=== PATIENT | male | born 1945 | race Caucasian/White ===

== ENCOUNTER 2017-03-31 06:00 | Emergency (ER) | payer OTHER ==
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
--- NOTE | 2017-03-31 07:41 | ED ORDER SUMMARY ---
..... Patient: MATA ALVARADO OrderSheet [facility] VisitID: [id number] [place] [address] 71y, M Registration Date/Time: 03/31/2017 ORDER SHEET Weight: 90.7 kg (stated) Allergies: [place] GENERAL ORDERS: CT Head wo Cont Urgent (06:03/31/2017 Michael Stahl) (Ack 6:32 [facility] Rod Drawer) (6:53 Sayra) MEDICATION ORDERS: Phenergan IV 25 mg (HIGH ALERT MEDICATION, NOW) (06:03/31/2017 Michael Stahl) (Ack 6:30 JQuivey R.N.) (6:40 JQuivey R.N.) IV FLUIDS: Benadryl IV 25 mg (NOW) (06:03/31/2017 Michael Stahl) (Ack 6:30 JQuivey R.N.) (6:41 JQuivey R.N.) Decadron IV 10 mg (NOW) (06:03/31/2017 Michael Stahl) (Ack 6:30 JQuivey R.N.) (6:41 JQuivey R.N.) Toradol IV 30 mg (NOW) (06:03/31/2017 Michael Stahl) (Ack 6:30 JQuivey R.N.) (6:40 JQuivey R.N.) ORDER SHEET NOTES: [Electronically signed by Abhishek Franklin R.N. (08:13 03/31/2017)] [Electronically signed by Terry Mcwilliams Dr. (11:20 04/04/2017)] [Electronically locked/signed by Abhishek Franklin R.N. (08:13 03/31/2017)]
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
--- NOTE | 2017-03-31 07:41 | ED ORDER SUMMARY ---
..... Patient: MATA ALVARADO OrderSheet [facility] VisitID: [id number] [place] [address] 71y, M Registration Date/Time: 03/31/2017 ORDER SHEET Weight: 90.7 kg (stated) Allergies: [place] GENERAL ORDERS: CT Head wo Cont Urgent (06:03/31/2017 Michael Stahl) (Ack 6:32 [facility] Luggage Attendant) (6:53 Sayra) MEDICATION ORDERS: Phenergan IV 25 mg (HIGH ALERT MEDICATION, NOW) (06:03/31/2017 Michael Stahl) (Ack 6:30 JQuivey R.N.) (6:40 JQuivey R.N.) IV FLUIDS: Benadryl IV 25 mg (NOW) (06:03/31/2017 Michael Stahl) (Ack 6:30 JQuivey R.N.) (6:41 JQuivey R.N.) Decadron IV 10 mg (NOW) (06:03/31/2017 Michael Stahl) (Ack 6:30 JQuivey R.N.) (6:41 JQuivey R.N.) Toradol IV 30 mg (NOW) (06:03/31/2017 Michael Stahl) (Ack 6:30 JQuivey R.N.) (6:40 JQuivey R.N.) ORDER SHEET NOTES: [Electronically signed by Abhishek Franklin R.N. (08:13 03/31/2017)] [Electronically signed by Terry Mcwilliams Dr. (11:20 04/04/2017)] [Electronically locked/signed by Abhishek Franklin R.N. (08:13 03/31/2017)]
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
--- NOTE | 2017-04-04 11:20 | ED MAR SUMMARY ---
..... Medication Administration Record [facility] [address] [place] [address] Patient: MATA ALVARADO Visit ID: [id number] 71y, M Weight: 90.7 kg Height/Length: 68 in BMI: 30.4 ALLERGIES: [place] Given 06:30 03/31/2017 Anthony Rush RCristelN. Medication Administered: PHENERGAN [IVP] (PROMETHAZINE HCL), Dose: 25 mg IVP over 2 minute(s), Site: #1 right wrist. Medication Ordered: Phenergan IV 25 mg (HIGH ALERT MEDICATION, NOW). Given 06:32 03/31/2017 Anthony Rush RCristelN. Medication Administered: TORADOL [IVP], Dose: 30 mg IVP over 2 minute(s), Site: #1 right wrist. Medication Ordered: Toradol IV 30 mg (NOW). Given 06:34 03/31/2017 Anthony Rush, R.N. Medication Administered: DECADRON [IVP], Dose: 10 mg IVP over 2 minute(s), Site: #1 right wrist. Medication Ordered: Decadron IV 10 mg (NOW). Given 06:37 03/31/2017 Anthony Rush R.N. Medication Administered: BENADRYL [IVP] (DIPHENHYDRAMINE HCL), Dose: 25 mg IVP over 2 minute(s), Site: #1 right wrist. Medication Ordered: Benadryl IV 25 mg (NOW).
--- NOTE | 2017-04-04 11:20 | ED MED RECONCILIATION SUMMARY ---
Patient: MATA ALVARADO Medication Reconciliation Report [facility] VisitID: [id number] Stefan [place] [address] 71y, M Registration Date/Time: 03/31/2017 Weight: 90.7 kg Height/Length: 68 in. BMI: 30.4 ALLERGIES: [place] The patient's Home Medications are listed below: CONTINUE TAKING THE FOLLOWING MEDICATIONS: HYDROcodone Bitartrate ER Oral Lisinopril Oral Plavix Oral The source(s) of the original Home Medication information: Not obtained. The following Medications were given to the patient in the Emergency Department: PHENERGAN [IVP] IVP 25 mg, administered: 03/31/2017 6:30:00 AM Toradol [IVP] IVP 30 mg, administered: 03/31/2017 6:32:00 AM Decadron [IVP] IVP 10 mg, administered: 03/31/2017 6:34:00 AM Benadryl [IVP] IVP 25 mg, administered: 03/31/2017 6:37:00 AM The following Medications were prescribed to the patient: Zofran (orally disintegrating tablets) 4 mg: take 1 orally every 8 hours as needed for nausea and vomiting. Dispense ten (10). No refill. Substitution is permissible. -- Terry Mcwilliams Dr. Tylenol (available over the counter): take according to label instructions. -- Terry Mcwilliams Dr.
--- NOTE | 2017-04-04 11:20 | ED MAR SUMMARY ---
..... Medication Administration Record [facility] [address] [place] [place] [address] Patient: MATA ALVARADO Visit ID: [id number] 71y, M Weight: 90.7 kg Height/Length: 68 in BMI: 30.4 ALLERGIES: [place] Given 06:30 03/31/2017 Anthony Rush RCristelN. Medication Administered: PHENERGAN [IVP] (PROMETHAZINE HCL), Dose: 25 mg IVP over 2 minute(s), Site: #1 right wrist. Medication Ordered: Phenergan IV 25 mg (HIGH ALERT MEDICATION, NOW). Given 06:32 03/31/2017 Anthony Rush RCristelN. Medication Administered: TORADOL [IVP], Dose: 30 mg IVP over 2 minute(s), Site: #1 right wrist. Medication Ordered: Toradol IV 30 mg (NOW). Given 06:34 03/31/2017 Anthony Rush, R.N. Medication Administered: DECADRON [IVP], Dose: 10 mg IVP over 2 minute(s), Site: #1 right wrist. Medication Ordered: Decadron IV 10 mg (NOW). Given 06:37 03/31/2017 Anthony Rush R.N. Medication Administered: BENADRYL [IVP] (DIPHENHYDRAMINE HCL), Dose: 25 mg IVP over 2 minute(s), Site: #1 right wrist. Medication Ordered: Benadryl IV 25 mg (NOW).
--- NOTE | 2017-04-04 11:20 | ED MED RECONCILIATION SUMMARY ---
Patient: MATA ALVARADO Medication Reconciliation Report [facility] VisitID: [id number] [place] [address] 71y, M Registration Date/Time: 03/31/2017 Weight: 90.7 kg Height/Length: 68 in. BMI: 30.4 ALLERGIES: [place] The patient's Home Medications are listed below: CONTINUE TAKING THE FOLLOWING MEDICATIONS: HYDROcodone Bitartrate ER Oral Lisinopril Oral Plavix Oral The source(s) of the original Home Medication information: Not obtained. The following Medications were given to the patient in the Emergency Department: PHENERGAN [IVP] IVP 25 mg, administered: 03/31/2017 6:30:00 AM Toradol [IVP] IVP 30 mg, administered: 03/31/2017 6:32:00 AM Decadron [IVP] IVP 10 mg, administered: 03/31/2017 6:34:00 AM Benadryl [IVP] IVP 25 mg, administered: 03/31/2017 6:37:00 AM The following Medications were prescribed to the patient: Zofran (orally disintegrating tablets) 4 mg: take 1 orally every 8 hours as needed for nausea and vomiting. Dispense ten (10). No refill. Substitution is permissible. -- Terry Mcwilliams Dr. Tylenol (available over the counter): take according to label instructions. -- Terry Mcwilliams Dr.
--- NOTE | 2017-04-04 11:20 | ED DISCHARGE INSTRUCTIONS ---
Patient: MATA ALVARADO General Instructions [facility] VisitID: [id number] [place] [address] 71y, M Registration Date/Time: 03/31/2017 03/31/2017 07:07 BP: 131/76. HR: 65. RR: 16. O2 saturation: 99%. Pain level now: 0/10. Acute headache. Blood pressure normal. Oxygen saturation normal. Minor closed head injury. Unknown whether a loss of consciousness occurred. INSTRUCTIONS Warnings: GENERAL WARNINGS: Return or contact your physician immediately if your condition worsens or changes unexpectedly, if not improving as expected, or if other problems arise. SPECIFICALLY, return if you develop fever, vomiting, numbness, weakness, difficulty thinking, visual disturbances, fainting or extreme fatigue. Your Current Medications: CONTINUE TAKING THE FOLLOWING MEDICATIONS: HYDROcodone Bitartrate ER Oral. Lisinopril Oral. Plavix Oral. Unable to Obtain* : patient states taht he cannot remember. Prescription Medications: Zofran (orally disintegrating tablets) 4 mg: take 1 orally every 8 hours as needed for nausea and vomiting. Dispense ten (10). No refill. Substitution is permissible. OTC Medications: Tylenol (available over the counter): take according to label instructions. Follow-up: Return to the emergency department as needed. Follow up with your doctor in three days. Reason for referral: recheck today's concerns. Summary of care provided to patient via paper. Screening today revealed the patient's blood pressure to be in the normal range. The patient should follow up with a primary care provider for blood pressure management. Understanding of the discharge instructions verbalized by patient. ADDITIONAL INFORMATION Head Injury, No Wake-Up (Adult) You have had a head injury. It does not appear serious at this time. Symptoms of a more serious problem (concussion, bruising, or bleeding in the brain) may appear later. Therefore, watch for the WARNING SIGNS listed below. Home Care: Your healthcare provider will tell you whether its okay to drive. If so, you can drive yourself home. For the next day or so, be careful when driving or using heavy machinery until you are sure you have no delayed symptoms. During the next 24 hours someone must stay with you to check for the signs below. It is not necessary to stay awake or be awakened during the night. If you have swelling of the face or scalp, apply an ice pack (ice cubes in a plastic bag, wrapped in a towel) for 20 minutes. Do this every 1-2 hours until the swelling starts to go down. Do not use aspirin or ibuprofen (Motrin, Advil) after a head injury.You may use acetaminophen (Tylenol)to control pain, unless another pain medicine was prescribed. [NOTE: If you have chronic liver or kidney disease or ever had a stomach ulcer or GI bleeding, talk with your doctor before using these medicines.] For the next 24 hours: Do not take alcohol, sedatives or medicines that make you sleepy. Avoid strenuous activities. No lifting or straining. If you have had any symptoms of a concussion today (nausea, vomiting, dizziness, confusion, headache, memory loss or if you were knocked out), do not return to sports or any activity that could result in another head injury until all symptoms are gone and you have been cleared by your doctor. A second head injury before fully recovering from the first one can lead to serious brain injury. Follow Up with your doctor if symptoms are not improving after 24 hours, or as directed. [NOTE: A radiologist will review any X-rays or CT scans that were taken. We will notify you of any new findings that may affect your care.] Get Prompt Medical Attention if any of the followingWARNING SIGNS occur: Repeated vomiting Severe or worsening headache or dizziness Unusual drowsiness, or unable to awaken as usual Confusion or change in behavior or speech, memory loss, blurred vision Convulsion (seizure) Increasing scalp or face swelling Redness, warmth or pus from the swollen area Fluid drainage or bleeding from the nose or ears Headache [Unspecified] The cause of your headache today is not clear, but it does not appear to be the sign of any serious illness. Under stress, some people tense the muscles of their shoulder, neck and scalp without knowing it. If this condition lasts long enough, a TENSION HEADACHE can occur. A MIGRAINE HEADACHE is caused by changes in blood flow to the brain. A migraine attack may be triggered by emotional stress, hormone changes during the menstrual cycle, oral contraceptives, alcohol use, certain foods containing tyramine, eye strain, weather changes, missing meals, lack of sleep or oversleeping. Other causes of headache include a viral illness with high fever, head injury with concussion, sinus, ear or throat infection, dental pain and TMJ (jaw joint) pain. More serious but less common causes of headache include stroke, brain hemorrhage, brain tumor, meningitis and encephalitis. Home Care: If you were given pain medicine for this headache, do not drive yourself home. Arrange for a ride, instead. When you get home, try to sleep. You should feel much better when you wake up. Apply heat to the back of your neck to relieve neck muscle spasm. Migraine headaches may respond best to an ice pack on the forehead or at the base of the skull. If you are having nausea or vomiting, follow a light diet until your headache is relieved. If you have a migraine type headache, use sunglasses when in the daylight or around bright indoor lighting until symptoms improve. Bright glaring light can worsen this kind of headache. Follow Up with your doctor if the headache is not better within the next 24 hours. If you have frequent headaches you should discuss a treatment plan with your primary care doctor. By being aware of the earliest signs of headache, and starting treatment right away, you may be able to stop the pain yourself. Get Prompt Medical Attention if any of the following occur: Worsening of your head pain or no improvement within 24 hours Repeated vomiting (unable to keep liquids down) Fever of 100.4F (38C) or higher, or as directed by your healthcare provider Stiff neck Extreme drowsiness, confusion or fainting Dizziness, vertigo (dizziness with spinning sensation) Weakness of an arm or leg or one side of the face Difficulty with speech or vision Ondansetron Oral disintegrating tablet What is this medicine? ONDANSETRON (on IHRAM se margie) is used to treat nausea and vomiting caused by chemotherapy. It is also used to prevent or treat nausea and vomiting after surgery. How should I use this medicine? These tablets are made to dissolve in the mouth. Do not try to push the tablet through the foil backing. With dry hands, peel away the foil backing and gently remove the tablet. Place the tablet in the mouth and allow it to dissolve, then swallow. While you may take these tablets with water, it is not necessary to do so. Talk to your manager engagement regarding the use of this medicine in children. Special care may be needed. What side effects may I notice from receiving this medicine? Side effects that you should report to your doctor or health customer care manager as soon as possible: allergic reactions like skin rash, itching or hives, swelling of the face, lips, or tongue breathing problems dizziness fast or irregular heartbeat feeling faint or lightheaded, falls fever and chills swelling of the hands and feet tightness in the chest Side effects that usually do not require medical attention (report to your doctor or health customer care manager if they continue or are bothersome): constipation or diarrhea headache What may interact with this medicine? Do not take this medicine with any of the following medications: -apomorphine -cisapride -dofetilide -dronedarone -pimozide -thioridazine -ziprasidone This medicine may also interact with the following medications: -carbamazepine -phenytoin -rifampicin -tramadol -other medicines that prolong the QT interval (cause an abnormal heart rhythm) What if I miss a dose? If you miss a dose, take it as soon as you can. If it is almost time for your next dose, take only that dose. Do not take double or extra doses. Where should I keep my medicine? Keep out of the reach of children. Store between 2 and 30 degrees C (36 and 86 degrees F). Throw away any unused medicine after the expiration date. What should I tell my health care provider before I take this medicine? They need to know if you have any of these conditions: heart disease history of irregular heartbeat liver disease low levels of magnesium or potassium in the blood an unusual or allergic reaction to ondansetron, granisetron, other medicines, foods, dyes, or preservatives or trying to get breast-feeding What should I watch for while using this medicine? Check with your doctor or health customer care manager as soon as you can if you have any sign of an allergic reaction. You have been given the following additional information: HEAD INJURY, No Wake-Up (Adult) Headache, Unspecified Ondansetron Oral disintegrating tablet (Electronically signed by Terry Mcwilliams Dr. 04/04/2017 11:20)
== END 2017-03-31 08:11 | disposition home or self-care (01) ==
LOC: ED SRH 06:00
DX: S09.90XA Unspecified injury of head, initial encounter (principal); Y08.89XA Assault by other specified means, initial encounter; Y93.89 Activity, other specified; Y99.8 Other external cause status; J44.9 Chronic obstructive pulmonary disease, unspecified; I10 Essential (primary) hypertension; Z79.891 Long term (current) use of opiate analgesic; Z79.899 Other long term (current) drug therapy; Z79.02 Long term (current) use of antithrombotics/antiplatelets

== ENCOUNTER 2017-04-04 20:18 | Emergency (ER) | payer OTHER ==
--- NOTE | 2017-04-04 20:43 | ED NURSING NOTES ---
Clinical Report - Nurses [facility] [address] [place] [address] 04/04/2017 20:19 Patient: MATA ALVARADO TRIAGE Triage time 20:Apr 04 2017. Acuity: LEVEL 4. Chief Complaint: Location of symptoms- left arm (lump proximal left upper arm). Alert. No acute distress. SEPSIS SCREEN: Sepsis Screen. Negative (no infection suspected/documented). --20:30 Jil Giles R.N. 20:23 04/04/17. BP: 146/77. HR: 81. RR: 16. O2 saturation: 94%. Temp: 98.1 F. Pain level now: 01/10. --20:30 Jil Giles R.N. Weight: 90.7 kg stated. Height/Length: 68 inches Per Patient. BMI: 30.4. --20:28 Jil Giles R.N. Medications HYDROcodone Bitartrate ER Oral. Lisinopril Oral. Plavix Oral. --20:25 Jil Giles R.N. Metoprolol Tartrate Oral. --20:27 Jil Giles R.N. Allergies [place]. --20:25 Jil Giles R.N. History Arrived by private vehicle. Historian: patient. No injury occurred. Treatment UNDERWRITING SUPPORT MANAGER: None. PAST MEDICAL HX: Tetanus status: up-to-date. Immunizations: up-to-date. SOCIAL HX: Light tobacco smoker (cigarette)- less than 1/2 a pack per day. No alcohol use or drug use. No infectious disease exposure. SELF HARM ASSESSMENT: A self harm assessment was performed. The patient answered "no" to the question "Do you have thoughts of harming or killing yourself?". FALL RISK ASSESSMENT: Fall risk assessment completed. No fall risk identified. NUTRITIONAL RISK ASSESSMENT: The nutritional risk assessment revealed no deficiencies. FUNCTIONAL ASSESSMENT: Functional assessment: no impairments noted. LEARNING NEEDS ASSESSMENT: The learning needs assessment revealed no barriers. ABUSE ASSESSMENT: Abuse assessment: The patient was asked "Do you feel safe in your home?". SKIN INTEGRITY ASSESSMENT: Skin integrity risk assessment completed. No skin integrity risk identified. --20:30 Jil Giles R.N. PROBLEMS: Headache. Head Injury. Congenital Heart Disease. Cirrhosis. Hepatitis. COPD - Chronic Obstructive Pulmonary Disease. Hypertension. Cardiac Stent. Heart attack. Back Injury. Neck Pain. Migraine Headache. Back Pain. --20:27 Jil Giles R.N. ADDITIONAL SURGERIES: Back Surgery. Cardiac Stent. Cholecystectomy. Wrist repair. --20:27 Jil Giles R.N. Interventions ID band on patient. --20:30 Jil Giles R.N. PHYSICAL ASSESSMENT Ambulatory to room. GENERAL / NEURO / PSYCH: Oriented X 4. Alert. Appears in no acute distress. EXTREMITIES: Neuro-vascular status intact to the extremity. No upper extremity edema. Left arm: of the medial aspect of upper arm (lump). SKIN: Skin is warm and dry. --20:31 Jil Giles R.N. NURSING PROGRESS NOTES Patient gowned. Patient identifiers checked. Call light placed in reach. Side rails up. Bed placed in lowest position. Brakes of bed on. --20:31 Jil Giles R.N. EKG time: (20:35). EKG was performed by a tech and shown to the ED physician and PA. --20:43 [facility]. DISPOSITION / DISCHARGE 20:50. Condition at departure: unchanged. No learning barriers present. Discharge instructions provided and reviewed with the patient. Patient verbalized understanding. Written instructions provided in [place]. The patient was discharged home. He left the Emergency Department ambulatory and via private vehicle. Patient driving. Medication list reviewed and validated. --21:04 Bree Hernandez R.N. 20:23 04/04/17. BP: 146/77. HR: 81. RR: 16. O2 saturation: 94%. Temp: 98.1 F. Pain level now: 01/10. --21:04 Bree Hernandez R.N. Locked/Released at 04/04/2017 21:05 by Bree Hernandez R.N.
--- NOTE | 2017-04-04 20:43 | ED CLINICAL REPORT ---
Clinical Report - Physicians/Mid Levels [facility] [address] [place] [address] 04/04/2017 20:19 Patient: MATA ALVARADO Time Seen: 21:43 Sunday 02 2016. Arrived- By private vehicle. Historian- patient. HISTORY OF PRESENT ILLNESS Chief Complaint: SKIN RASH and LESION. This started today and is still present. (patient felt a lump to the upper arm today, and his left side, and it was painful, and due to concerns previous from a cardiac stent, he remembers his doctor stating to him that he is at risk of blood clots. Patient with no history of DVT or PE. He has no pain outside of when he contacts the left upper arm where he has found some small amount of swelling. Denies any injury. Denies any shortness of breath or chest pain. Denies any trauma to the left arm. Denies any fevers. Denies a rash to the area.). REVIEW OF SYSTEMS No fever, chills, cough, headache or nausea. No difficulty with urination. All systems otherwise negative, except as recorded above. PAST HISTORY Tetanus immunization status is up-to-date. Problems: Headache. Head Injury. Congenital Heart Disease. Cirrhosis. Hepatitis. COPD - Chronic Obstructive Pulmonary Disease. Hypertension. Cardiac Stent. Heart attack. Back Injury. Neck Pain. Migraine Headache. Back Pain. Additional Surgeries: Back Surgery. Cardiac Stent. Cholecystectomy. Wrist repair. Medications: Metoprolol Tartrate Oral. HYDROcodone Bitartrate ER Oral. Lisinopril Oral. Plavix Oral. Allergies: [place]. ADDITIONAL NOTES The nursing notes have been reviewed. PHYSICAL EXAM Vital Signs: 04/04/2017 20:23 BP: 146/77. HR: 81. RR: 16. O2 saturation: 94%. Temp: 98.1 F. Pain level now: 3/10. Appearance: Alert. Neck: Neck supple. No lymphadenopathy. Respiratory: No respiratory distress. Breath sounds normal. Skin: Skin warm. Tender indurated area (Small 0.3 x 0.3 lump mobile minimally tender on the left distal bicep, with no discoloration.). No warmth. There is induration. Neuro: Oriented X 3. PROGRESS AND PROCEDURES Course of Care: Patient has no pain outside of palpation of this left small lesion. Patient concerned about DVT, given him reassurance for such, may be an insect bites of the area, no surrounding erythema. Full range of motion. No lymphangitic streaking. Suspicion is low as for DVT. Symptoms started today. Patient to follow up outpatient, return precautions discussed with him. Patient is stable. Symptoms better. Patient/family counseled. Disposition: Discharged. CLINICAL IMPRESSION Left upper extremity small lump (palpable). INSTRUCTIONS Follow-up: Follow up with your doctor in three. (Electronically signed by Lidia Deal P.A.-C 04/04/2017 21:48)
--- NOTE | 2017-04-04 20:43 | ED CLINICAL REPORT ---
Clinical Report - Physicians/Mid Levels [facility] [address] [place] [address] 04/04/2017 20:19 Patient: MATA ALVARADO Time Seen: 21:43 Sunday 02 2016. Arrived- By private vehicle. Historian- patient. HISTORY OF PRESENT ILLNESS Chief Complaint: SKIN RASH and LESION. This started today and is still present. (patient felt a lump to the upper arm today, and his left side, and it was painful, and due to concerns previous from a cardiac stent, he remembers his doctor stating to him that he is at risk of blood clots. Patient with no history of DVT or PE. He has no pain outside of when he contacts the left upper arm where he has found some small amount of swelling. Denies any injury. Denies any shortness of breath or chest pain. Denies any trauma to the left arm. Denies any fevers. Denies a rash to the area.). REVIEW OF SYSTEMS No fever, chills, cough, headache or nausea. No difficulty with urination. All systems otherwise negative, except as recorded above. PAST HISTORY Tetanus immunization status is up-to-date. Problems: Headache. Head Injury. Congenital Heart Disease. Cirrhosis. Hepatitis. COPD - Chronic Obstructive Pulmonary Disease. Hypertension. Cardiac Stent. Heart attack. Back Injury. Neck Pain. Migraine Headache. Back Pain. Additional Surgeries: Back Surgery. Cardiac Stent. Cholecystectomy. Wrist repair. Medications: Metoprolol Tartrate Oral. HYDROcodone Bitartrate ER Oral. Lisinopril Oral. Plavix Oral. Allergies: [place]. ADDITIONAL NOTES The nursing notes have been reviewed. PHYSICAL EXAM Vital Signs: 04/04/2017 20:23 BP: 146/77. HR: 81. RR: 16. O2 saturation: 94%. Temp: 98.1 F. Pain level now: 3/10. Appearance: Alert. Neck: Neck supple. No lymphadenopathy. Respiratory: No respiratory distress. Breath sounds normal. Skin: Skin warm. Tender indurated area (Small 0.3 x 0.3 lump mobile minimally tender on the left distal bicep, with no discoloration.). No warmth. There is induration. Neuro: Oriented X 3. PROGRESS AND PROCEDURES Course of Care: Patient has no pain outside of palpation of this left small lesion. Patient concerned about DVT, given him reassurance for such, may be an insect bites of the area, no surrounding erythema. Full range of motion. No lymphangitic streaking. Suspicion is low as for DVT. Symptoms started today. Patient to follow up outpatient, return precautions discussed with him. Patient is stable. Symptoms better. Patient/family counseled. Disposition: Discharged. CLINICAL IMPRESSION Left upper extremity small lump (palpable). INSTRUCTIONS Follow-up: Follow up with your doctor in three. (Electronically signed by Lidia Deal P.A.-C 04/04/2017 21:48)
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
--- NOTE | 2017-04-04 21:48 | ED MED RECONCILIATION SUMMARY ---
Patient: MATA ALVARADO Medication Reconciliation Report [facility] VisitID: [id number] [address] [place] [address] 71y, M Registration Date/Time: 04/04/2017 Weight: 90.7 kg Height/Length: 68 in. BMI: 30.4 ALLERGIES: [place] The patient's Home Medications are listed below: THE FOLLOWING MEDICATIONS NEED TO BE RECONCILED: HYDROcodone Bitartrate ER Oral Lisinopril Oral Metoprolol Tartrate Oral Plavix Oral The source(s) of the original Home Medication information: Not obtained. The following Medications were given to the patient in the Emergency Department: None. The following Medications were prescribed to the patient: None.
--- NOTE | 2017-04-04 21:48 | ED MAR SUMMARY ---
..... Medication Administration Record [facility] [address] [place], [place] [id number] Patient: MATA ALVARADO Visit ID: [id number] 71y, M Weight: 90.7 kg Height/Length: 68 in BMI: 30.4 ALLERGIES: [place]
--- NOTE | 2017-04-04 21:48 | ED MAR SUMMARY ---
..... Medication Administration Record [facility] [address] [place], [place] [id number] Patient: MATA ALVARADO Visit ID: [id number] 71y, M Weight: 90.7 kg Height/Length: 68 in BMI: 30.4 ALLERGIES: [place]
--- NOTE | 2017-04-04 21:48 | ED DISCHARGE INSTRUCTIONS ---
Patient: MATA ALVARADO General Instructions [facility] VisitID: [id number] [address] [place] [address] 71y, M Registration Date/Time: 04/04/2017 Left upper extremity small lump (palpable). INSTRUCTIONS Follow-up: Follow up with your doctor in three. (Electronically signed by Lidia Deal P.A.-C 04/04/2017 21:48)
--- NOTE | 2017-04-04 21:48 | ED DISCHARGE INSTRUCTIONS ---
Patient: MATA ALVARADO General Instructions [facility] VisitID: [id number] [address] [place] [address] 71y, M Registration Date/Time: 04/04/2017 Left upper extremity small lump (palpable). INSTRUCTIONS Follow-up: Follow up with your doctor in three. (Electronically signed by Lidia Deal P.A.-C 04/04/2017 21:48)
--- NOTE | 2017-04-04 21:48 | ED MED RECONCILIATION SUMMARY ---
Patient: MATA ALVARADO Medication Reconciliation Report [facility] VisitID: [id number] [address] [place] [address] 71y, M Registration Date/Time: 04/04/2017 Weight: 90.7 kg Height/Length: 68 in. BMI: 30.4 ALLERGIES: [place] The patient's Home Medications are listed below: THE FOLLOWING MEDICATIONS NEED TO BE RECONCILED: HYDROcodone Bitartrate ER Oral Lisinopril Oral Metoprolol Tartrate Oral Plavix Oral The source(s) of the original Home Medication information: Not obtained. The following Medications were given to the patient in the Emergency Department: None. The following Medications were prescribed to the patient: None.
== END 2017-04-04 20:50 | disposition home or self-care (01) ==
LOC: ED SRH 20:18
DX: R22.32 Localized swelling, mass and lump, left upper limb (principal); J44.9 Chronic obstructive pulmonary disease, unspecified; I10 Essential (primary) hypertension; Z95.5 Presence of coronary angioplasty implant and graft; I25.2 Old myocardial infarction; Z79.899 Other long term (current) drug therapy; Z79.02 Long term (current) use of antithrombotics/antiplatelets; Z88.8 Allergy status to other drugs, medicaments and biological substances

== ENCOUNTER 2017-04-10 18:51 | Emergency (ER) | payer OTHER ==
--- NOTE | 2017-04-10 19:13 | ED MAR SUMMARY ---
..... Medication Administration Record [facility] [address] [place], [place] [id number] Patient: MATA ALVARADO Visit ID: [id number] 71y, M Weight: (not available) Height/Length: (not available) BMI: (not available) ALLERGIES:
--- NOTE | 2017-04-10 19:13 | ED MED RECONCILIATION SUMMARY ---
Patient: MATA ALVARADO Medication Reconciliation Report [facility] VisitID: [id number] [address] [place] [address] 71y, M Registration Date/Time: 04/10/2017 Weight: (not available) Height/Length: (not available) BMI: (not available) ALLERGIES: The patient's Home Medications are listed below: Not obtained. The source(s) of the original Home Medication information: Not obtained. The following Medications were given to the patient in the Emergency Department: None. The following Medications were prescribed to the patient: None.
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
--- NOTE | 2017-04-10 19:13 | ED MED RECONCILIATION SUMMARY ---
Patient: MATA ALVARADO Medication Reconciliation Report [facility] VisitID: [id number] [address] [place] [address] 71y, M Registration Date/Time: 04/10/2017 Weight: (not available) Height/Length: (not available) BMI: (not available) ALLERGIES: The patient's Home Medications are listed below: Not obtained. The source(s) of the original Home Medication information: Not obtained. The following Medications were given to the patient in the Emergency Department: None. The following Medications were prescribed to the patient: None.
--- NOTE | 2017-04-10 19:13 | ED MAR SUMMARY ---
..... Medication Administration Record [facility] [address] [place], [place] [id number] Patient: MATA ALVARADO Visit ID: [id number] 71y, M Weight: (not available) Height/Length: (not available) BMI: (not available) ALLERGIES:
== END 2017-04-10 19:10 | disposition left against medical advice (07) ==
LOC: ED SRH 18:51
DX: Z53.21 Procedure and treatment not carried out due to patient leaving prior to being seen by health care provider (principal)

== ENCOUNTER 2017-04-30 15:15 | Observation (INO) | payer OTHER ==
[~2017-04-30] VITALS: Ht 172.7 cm; Wt 94.0 kg
--- NOTE | 2017-04-30 16:06 | DIAGNOSTIC IMAGING REPORT ---
PROCEDURE: XR CHEST 1 VIEW INDICATION: CHEST PAIN TECHNIQUE: Single view chest. 1554 hours COMPARISON: None. FINDINGS: The cardiomediastinal contour and central vasculature are normal. The lungs are clear without focal consolidation, pleural effusion or pneumothorax. The osseous structures are intact. IMPRESSION: 1. No evidence of acute cardiopulmonary disease.
--- NOTE | 2017-04-30 16:26 | DIAGNOSTIC IMAGING REPORT ---
PROCEDURE: CT HEAD WITHOUT CONTRAST INDICATION: TRAUMA/INJURY TECHNIQUE: Axial CT images were acquired through the head. Coronal and sagittal reformations were created. COMPARISON: 03/31/2017 FINDINGS: No intracranial hemorrhage or extraaxial fluid collections. Ventricles are normal in size, shape and position. There is no mass, mass effect or midline shift. The aranda-white matter differentiation is normal. There is no edema. The calvarium is intact. The paranasal sinuses and mastoid air cells are normally aerated. The extracranial soft tissues and orbits are normal. IMPRESSION: 1. No CT evidence of acute intracranial process. 2. Findings discussed with Dr. Zayas at [address] scans at this facility use dose modulation, iterative reconstruction, and/or weight-based dosing when appropriate to reduce radiation dose to as low as reasonably achievable.
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
--- NOTE | 2017-04-30 18:18 | ED ORDER SUMMARY ---
..... Patient: MATA ALVARADO OrderSheet [facility] VisitID: [id number] [place] [address] 71y, M Registration Date/Time: 04/30/2017 ORDER SHEET Weight: 86.1 kg (stated) Allergies: [place], Neosporin GENERAL ORDERS: EKG - ER Stat (15:26 04/30/2017 JBoardley R.N. per protocol) (15:26 LNations ER Tech1) Chest 1V Urgent (15:42 04/30/2017 JBoardley R.N. per protocol) (Ack 15:46 KHoerner) (15:52 JBoardley R.N.) Cow Tester (Continuous) (15:42 04/30/2017 JBoardley R.N. per protocol) (15:42 JBoardley R.N.) Cardiac Panel Stat (15:42 04/30/2017 JBoardley R.N. per protocol) (Ack 15:46 KHoerner) (15:52 JBoardley R.N.) Oxygen (2 L/min) (NC) (15:42 04/30/2017 JBoardley R.N. per protocol) (15:42 JBoardley R.N.) Pulse oximeter (15:42 04/30/2017 JBoardley R.N. per protocol) (15:42 JBoardley R.N.) CT Head wo Cont Urgent (16:03 04/30/2017 Ayesha LEDEZMA) (Ack 16:04 KHoerner) (16:31 JBoardley R.N.) - (Orthostatic BP/P) (18:03 04/30/2017 Ayesha LEDEZMA) (Ack 18:24 RUBENSoerner) (18:47 KHoerner) MEDICATION ORDERS: Hydrocodone-APAP PO 10/650 mg (NOW) (18:48 04/30/2017 Ayesha LEDEZMA) (Ack 18:53 JBoardley R.N.) (18:56 JBoardley R.N.) Aspirin PO 325 mg (NOW) (19:01 04/30/2017 Ayesha LEDEZMA) (Ack 19:04 JBoardley R.N.) (19:11 JBoardley R.N.) IV FLUIDS: IV NS : initial bolus none -, then 1000 mL/hr for X1 (NOW); Routine (15:42 04/30/2017 JBoardley R.N. per protocol) (15:43 JBoardley R.N.) IV Saline Lock (15:42 04/30/2017 JBoardley R.N. per protocol) (15:43 JBoardley R.N.) ORDER SHEET NOTES: [Electronically signed by Shane Zayas MD (21:53 04/30/2017)] [Electronically signed by Syeda Donato R.N. (22:20 04/30/2017)] [Electronically locked/signed by Syeda Donato R.N. (22:20 04/30/2017)]
--- NOTE | 2017-04-30 18:18 | ED ORDER SUMMARY ---
..... Patient: MATA ALVARADO OrderSheet [facility] VisitID: [id number] [place] [address] 71y, M Registration Date/Time: 04/30/2017 ORDER SHEET Weight: 86.1 kg (stated) Allergies: [place], Neosporin GENERAL ORDERS: EKG - ER Stat (15:26 04/30/2017 JBoardley R.N. per protocol) (15:26 LNations ER Tech1) Chest 1V Urgent (15:42 04/30/2017 JBoardley R.N. per protocol) (Ack 15:46 KHoerner) (15:52 JBoardley R.N.) Mobile Security Specialist (Continuous) (15:42 04/30/2017 JBoardley R.N. per protocol) (15:42 JBoardley R.N.) Cardiac Panel Stat (15:42 04/30/2017 JBoardley R.N. per protocol) (Ack 15:46 KHoerner) (15:52 JBoardley R.N.) Oxygen (2 L/min) (NC) (15:42 04/30/2017 JBoardley R.N. per protocol) (15:42 JBoardley R.N.) Pulse oximeter (15:42 04/30/2017 JBoardley R.N. per protocol) (15:42 JBoardley R.N.) CT Head wo Cont Urgent (16:03 04/30/2017 Ayesha LEDEZMA) (Ack 16:04 KHoerner) (16:31 JBoardley R.N.) - (Orthostatic BP/P) (18:03 04/30/2017 Ayesha LEDEZMA) (Ack 18:24 RUBENSoerner) (18:47 KHoerner) MEDICATION ORDERS: Hydrocodone-APAP PO 10/650 mg (NOW) (18:48 04/30/2017 Ayesha LEDEZMA) (Ack 18:53 JBoardley R.N.) (18:56 JBoardley R.N.) Aspirin PO 325 mg (NOW) (19:01 04/30/2017 Ayesha LEDEZMA) (Ack 19:04 JBoardley R.N.) (19:11 JBoardley R.N.) IV FLUIDS: IV NS : initial bolus none -, then 1000 mL/hr for X1 (NOW); Routine (15:42 04/30/2017 JBoardley R.N. per protocol) (15:43 JBoardley R.N.) IV Saline Lock (15:42 04/30/2017 JBoardley R.N. per protocol) (15:43 JBoardley R.N.) ORDER SHEET NOTES: [Electronically signed by Shane Zayas MD (21:53 04/30/2017)] [Electronically signed by Syeda Donato R.N. (22:20 04/30/2017)] [Electronically locked/signed by Syeda Donato R.N. (22:20 04/30/2017)]
--- NOTE | 2017-04-30 18:18 | ED NURSING NOTES ---
Clinical Report - Nurses [facility] [address] [place] [address] 04/30/2017 15:18 Patient: MATA ALVARADO TRIAGE Triage time 15:Apr 30 2017. Acuity: LEVEL 3. Chief Complaint: SYNCOPE. 15:04/30/17. 15:04/30/17. Alert. No acute distress. OJVANA COMA SCORE: [place] Coma Scale: 15- eyes open spontaneously (4); best verbal response- oriented x 4 (5); best motor response- obeys commands (6). --15:29 Abhishek Franklin R.N. 15:24 04/30/17. BP: 154/84. HR: 84. RR: 18. O2 saturation: 98% on room air. Temp: 97.8 F (oral). Pain level now: 0/10. --15:29 Abhishek Franklin R.N. Weight: 86.1 kg stated. Height/Length: 68 inches Per Patient. BMI: 28.9. --15:26 Abhishek Franklin R.N. Medications HYDROcodone Bitartrate ER Oral. Lisinopril Oral. Metoprolol Tartrate Oral. --15:29 Abhishek Franklin R.N. Plavix Oral. --15:29 Abhishek Franklin R.N. Allergies [place]. --15:29 Abhishek Franklin R.N. Neosporin. --15:30 Abhishek Franklin R.N. Medication/allergy information source: the patient. --15:29 Abhishek Franklin R.N. History Arrived by private vehicle. Historian: patient. Unaccompanied. Primary physician ([facility], Pain Specialist). 15:26 04/30/17. This started today 0300 pt "fainted" at home, pt states he was on the floor for 30 min. Pt states he fell on the floor, pts bed is on the floor and that is what he fell on. PAST MEDICAL HX: Immunizations: up-to-date. SOCIAL HX: Former smoker (cigarette)- less than 1/2 a pack per day. No alcohol use or drug use. No infectious disease exposure. ABUSE ASSESSMENT: No report of abuse. FALL RISK ASSESSMENT: Fall risk assessment completed. No fall risk identified. NUTRITIONAL RISK ASSESSMENT: The nutritional risk assessment revealed no deficiencies. FUNCTIONAL ASSESSMENT: Functional assessment: no impairments noted. LEARNING NEEDS ASSESSMENT: The learning needs assessment revealed no barriers. SKIN INTEGRITY ASSESSMENT: Skin integrity risk assessment completed. No skin integrity risk identified. --15:29 Abhishek Franklin R.N. Treatment MACHINE CLERICAL VERIFIER: (Vicodin). --15:31 Abhishek Franklin R.N. PROBLEMS: Headache. Head Injury. Congenital Heart Disease. Cirrhosis. Hepatitis. COPD - Chronic Obstructive Pulmonary Disease. Hypertension. Cardiac Stent. Heart attack. Back Injury. Neck Pain. Migraine Headache. Back Pain. --15:29 Abhishek Franklin R.N. ADDITIONAL SURGERIES: Back Surgery. Cardiac Stent. Cholecystectomy. Wrist repair. --15:29 Abhishek Franklin R.N. Assessment 15:04/30/17. --15:29 Abhishek Franklin R.N. Interventions 15:04/30/17. 15:04/30/17. ID and allergy band on patient. To treatment room. --15:29 Abhishek Franklin R.N. NURSING PROGRESS NOTES 15:04/30/17. The plan of care for this patient has been created. clerk stenographer, pulse oximeter and NIBP monitor placed on patient; monitor alarms on. EKG time: (1532 PM). EKG was ordered, performed by a tech and shown to the ED physician. Patient gowned. Head of bed elevated. Reassurance given. Two patient identifiers checked. Call light placed in reach. Side rails up x 2. Bed placed in lowest position. Brakes of bed on. Patient ready for evaluation- chart flagged and notification provided. --15:31 Abhishek Franklin R.N. 15:43 04/30/2017 Site #1 started via IV in the left antecubital space with an 20g angiocath, with aseptic technique and good blood return; one attempt. Blood drawn: rainbow set. Labeled in the presence of the patient and sent to the lab. Saline lock flushed with 10 mL saline. --15:43 Abhishek Franklin R.N. 15:43 04/30/2017 Started bag #1 1000 mL IV Fluids IV NS (Saline); at 1000 mL/hr over 1 hour(s) via site #1. Allergies verified and confirmed 5 rights. IV patency established. IV site checked: no pain, redness, or swelling. IV flushed thoroughly pre- and post-medication administration. Completed per protocol. --15:43 Abhishek Franklin R.N. 15:43 04/30/17. HR: 79. RR: 16. O2 saturation: 100% on nasal cannula at 2 liters/minute. --15:44 Abhishek Franklin R.N. 15:44 04/30/17. Cardiac rhythm: normal sinus rhythm. --15:44 Abhishek Franklin R.N. 15:44 04/30/17. Patient and family informed about reason for wait and about plan of care. --15:44 Abhishek Franklin R.N. 17:43 04/30/17. BP: 110/81. HR: 75. RR: 18. O2 saturation: 99% on nasal cannula at 2 liters/minute. Temp: 98.2 F (oral). Pain level now: 0/10. --17:46 Abhishek Franklin R.N. 17:23 04/30/2017 IV Fluids IV NS Discontinued: bag #1 infused. Total amount infused: 1000 mL. IV patency established. IV site checked: no pain, redness, or swelling. IV flushed thoroughly. --17:49 Abhishek Franklin R.N. 17:46 04/30/17. Cardiac rhythm: normal sinus rhythm. The patient reports no complaints and he is calm, resting quietly and sleeping. GENERAL / NEURO / PSYCH: Alert. Oriented X 4. Affect appears normal. RESPIRATORY: No respiratory distress. SKIN: Skin is warm and dry. --17:46 Abhishek Franklin R.N. 17:46 04/30/17. Patient waiting for disposition. --17:46 Abhishek Franklin R.N. ( H/P forms on chart.). --18:33 Beth Bruce ER Tech 18:43 04/30/17. BP: 116/67 taken while lying. HR: 72. --18:43 Del Norton <<STRICKEN ENTRY-- 18:43 04/30/17. --18:43 Del Norton --END STRIKE>> Correction --18:44 Del Norton 18:43 04/30/17. BP: 164/79 taken while sitting. HR: 77. Additional comments: Pt felt dizzy upon sitting. --18:44 Del Norton ( Unable to obtain BP while standing due to pt's back pain.). --18:46 Del Norton 18:56 04/30/2017 Hydrocodone-APAP (Hydrocodone-Acetaminophen) PO 5/325 mg Tablets 2 tab given. Allergies verified, confirmed 5 rights and sedative warning given to the patient. --18:56 Abhishek Franklin R.N. 19:11 04/30/2017 Aspirin PO 325 mg given. Allergies verified and confirmed 5 rights. --19:11 Abhishek Franklin R.N. 19:11 04/30/17. Care transferred and report given. --19:11 Abhishek Franklin R.N. DISPOSITION / DISCHARGE 20:24 04/30/17. Admitted to Acute Care. Report was given to a nurse via a phone call. Report included patient's care, treatment, medications, reviewed medication reconcilliation, and condition (including any recent changes or anticipated changes). All questions were answered. Report was acknowledged. --20:24 Syeda Donato R.N. 20:31 04/30/17. --20:37 Syeda Donato R.N. 20:27 04/30/17. BP: 135/99. HR: 87. RR: 16. O2 saturation: 97%. Temp: deferred. Pain level now: 04/12. --20:37 Syeda Donato R.N. Locked/Released at 04/30/2017 22:20 by Syeda Donato R.N.
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
--- NOTE | 2017-04-30 20:57 | Progress Note ---
Subjective General Admission History and Physical Examination Patient Name: Lisandro Carpenter Admission Date: April 30, 2017 Primary Care Provider: Alex Bains M.D. Attending Physician: Jose Benites M.D. Admitting Physician: Alex Bynum M.D. Code Status: FULL CODE Room: 205 Status: Observation, ACU SUBJECTIVE Historian: Patient Reliability: Fair Chief Complaint: Syncope History of Present Illness: The patient is a 71-year-old white male with a significant past make a history of COPD, hypertension, coronary artery disease status post coronary stent placement, hepatitis C, cirrhosis, chronic back pain, migraine headaches, who presented to [facility] emergency department on the day of admission secondary to complaints of syncope. [facility] ER evaluation was consistent with syncope with head trauma without significant injury. Secondary to the above, the patient was admitted by Alex Bynum M.D. for further evaluation and treatment. The history of present illness began in the early a.m. of the day of admission. The patient apparently awoke around 3 AM he was slightly lightheaded/week at that time. He marcelo only to fall back in his bed with a syncopal episode. This was unwitnessed. It is unclear the duration of loss of consciousness. He denied any history of chest pain, palpitations, shortness of breath prior to this episode. He stated that he had noted dried blood from his right ear but sustained no significant trauma as he fell back on his bed during his syncopal episode. The patient has not felt well recently with generalized malaise. No fever or chills. He apparently has not had anything to eat over the past week secondary to poor finances and inability to purchase food. He currently relies on Social Security only for support. [facility] ER evaluation was consistent with syncope of unknown etiology rule out vasovagal, rule out cardiac arrhythmia. CT scan obtained of head at the time of admission was unremarkable. Secondary to the above the patient was admitted for further evaluation and treatment. PAST MEDICAL HISTORY Illnesses: 1. Cirrhosis 2. Hepatitis C 3. COPD 4. Hypertension 5. Coronary disease status post myocardial infarction, status post coronary stent placement 6. Migraine headaches 7. Chronic back pain Allergies: 1. [place] 2. Neosporin Medications: 1. Plavix 75 mg 1 by mouth daily 2. Lisinopril 20 mg by mouth daily 3. Toprol-XL 25 mg by mouth twice a day 4. Vicodin 10/325 2 tablets by mouth every 4 hours when necessary pain 5. Zofran ODT 4 mg 1 by mouth every 8 hours when necessary nausea 6. Gabapentin 300 mg by mouth twice a day Surgery: 1. Back surgery 2. Coronary stent placement 3. Cholecystectomy 4. Wrist surgery Injuries: 1. No significant Hospitalizations: 1. For above surgery and medical problems FAMILY HISTORY Parents: 1. Father, , 98, pancreatic cancer, 2. Mother, , 102, CHF Siblings: 1. Male, , 72, pancreatic cancer 2. Female, living, 70, healthy Children: 1. Male, living, 52, healthy 2. Female, living, age unknown, healthy 3. The patient had 2 children one murdered and one secondary to motor vehicle accident Other significant family history: None SOCIAL HISTORY 1. Marital Status: 2. Tenriism: Cheondoism 3. Education: GED and 2 years of college 4. Employment History: Disabled since 1983 5. Occupational health exposures: No significant HABITS 1. Tobacco: 100 pack years, current smoker 2. Drugs: None 3. Alcohol: None 4. Caffeine: None HEALTH SUPERVISION Item/Test 1. Colonoscopy 2015 2. ECG 2016 3. Blood glucose 2017 IMMUNIZATIONS: 1. Pneumococcal: 2016 2. Influenza: 2016 3. Tetanus: Unknown ADVANCED DIRECTIVES: 1. Living well: Yes 2. POLST: No 3. Code Status: FULL CODE 4. 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 Donor card: No REVIEW OF SYSTEMS Remarkable for those things stated in the history of present illness and past medical history. Seventeen point review of system completed with the following notable findings: General: Generalized malaise Eyes: Cataracts, glaucoma, visual loss requiring corrective lenses Mouth: Edentulous Genitourinary: Difficulty initiating urinary stream Gastrointestinal: Chronic diarrhea Musculoskeletal: Chronic back pain, chronic neck pain Physical Exam Vital Signs / I&Os Blood pressure: 154/84 mmHg Heart rate: 84/minute Respiratory rate: 18/minute Temperature: 97.8 Fahrenheit Pulse oximetry: 98% room air General Appearance Alert, Oriented X3, Cooperative, No acute distress HEENT Atraumatic, PERRLA, EOMI, Moist mucous membranes, Ear (R) side without trauma, blood noted. Lungs Clear to auscultation, Normal air movement Neck Supple, No JVD, No masses, No thyromegaly, No lymphadenopathy Cardiovascular Regular rate and rhythm, Normal S1 and S2, No murmurs, gallops, rubs Abdomen Normal bowel sounds, Soft, No tenderness, No guarding Extremities No cyanosis, No clubbing, No edema, Normal pulses Skin multiple tattoos-upper extremities, lower extremities, trunk Neurological Cranial nerves intact, Strength 5/5 x4 ext's, No lateralizing signs Psych/Mental Status Mental status normal, Mood normal LAB Results Laboratory Tests 04/30 1545 Chemistry Plasma Sodium (136 - 145 mmol/L) 141 Plasma Potassium (3.5 - 5.1 mmol/L) 3.9 Plasma Chloride (98 - 107 mmol/L) 106 CO2 (Enzymatic) (21 - 32 mmol/L) 24 BUN (7 - 18 mg/dL) 21 Creatinine (0.6 - 1.3 mg/dL) 0.9 Est GFR ( Amer) (mL/min) >60 Est GFR (Non-Af Amer) (mL/min) >60 Glucose (70 - 110 mg/dL) 95 Plasma Calcium (8.5 - 10.1 mg/dL) 8.7 Plasma Magnesium (1.8 - 2.4 mg/dL) 1.8 Total Bilirubin (0.0 - 1.0 mg/dL) 0.5 AST (15 - 37 U/L) 31 ALT (12 - 78 U/L) 29 Alkaline Phosphatase (46 - 116 U/L) 103 Creatine Kinase (24 - 260 U/L) 213 Troponin (0.00 - 1.5 ng/mL) <0.05 Total Protein (6.4 - 8.2 g/dL) 7.3 Albumin (3.3 - 5.0 g/dL) 3.5 Hematology WBC (4.5 - 11.5 K/uL) 8.6 RBC (4.50 - 5.90 M/uL) 4.73 Hgb (13.5 - 17.5 gm/dL) 15.2 Hct (41.0 - 53.0 %) 44.9 MCV (80 - 100 fL) 95 MCH (26 - 34 pg) 32 RDW (11.6 - 14.8 %) 14.1 Neut % (Auto) (50 - 75 %) 66.9 Lymph % (Auto) (25 - 40 %) 20.4 [place] % (Auto) (3 - 14 %) 8.0 Eos % (Auto) (0 - 4 %) 4.3 Baso % (Auto) (0 - 2 %) 0.4 Plt Count, EDTA (150 - 400 K/uL) 233 PUBS MCHC (31 - 37 g/dL) 34 Imaging Chest x-ray IMPRESSION: 1. No evidence of acute cardiopulmonary disease. Dictated by: NITISH CHANDLER MD D: MERCED;04/30/[address] Scan Head IMPRESSION: 1. No CT evidence of acute intracranial process. 2. Findings discussed with Dr. Zayas at 1625 hours. Dictated by: NITISH CHANDLER MD D: MERCED;04/30/17 1626 Assessment and Plan Problem List 1. Syncope and collapse Plan -Patient presents with history of syncope. -Episode was unwitnessed -Patient felt slightly lightheaded prior to episode. -Patient denies history of palpitations, chest pain, shortness of breath prior to episode of syncope. -No subsequent episodes -Orthostatic blood pressure checks unremarkable -Monitor to assess for cardiac arrhythmia 2. Coronary artery disease Status Chronic Onset Date Unknown Plan -Patient with history of coronary disease -Status post myocardial infarction -Status post coronary stent placement 1 -No recent history of chest pain -Monitor 3. Chronic back pain Status Chronic Onset Date Unknown Plan -Patient with history of chronic back pain -Continue Vicodin 5/325 mg 1-2 orally every 4 hours when necessary pain -Outpatient follow-up with PCP 4. Hypertension Status Chronic Onset Date Unknown Plan -Patient with history of hypertension -Blood pressure minimally elevated at this time -Continue outpatient medical regimen -Monitor -Check orthostatic blood pressure secondary to history of syncope Current status: Fair, unstable Anticipated discharge date: Anticipated discharge within 24 hours Anticipated discharge placement: Home Patient care time: Time in chart review, patient interview, physical exam, CPOE, and care documentation: 70 mins Visit to patient today: 2 Complexity of care: Moderate-High DVT prophylaxis: Lovenox 40 mg subcutaneous daily E&M Codes Admission: Obsv-Comp/High/[id number]
[2017-04-30 21:10] VITALS: BP 143/69
--- NOTE | 2017-04-30 22:20 | ED DISCHARGE INSTRUCTIONS ---
Patient: MATA ALVARADO General Instructions [facility] VisitID: [id number] [place] [address] 71y, M Registration Date/Time: 04/30/2017 Syncope of unknown cause .12 lead EKG performed. CAD. ADDITIONAL INFORMATION Fainting:Uncertain Cause Fainting (syncope) is a temporary loss of consciousness ("passing out"). It occurs when blood flow to the brain is reduced. Near-fainting ("near-syncope") is very similar to fainting, but you do not fully "pass out". The common minor causes of fainting include: sudden fear, pain, nausea, emotional stress and overexertion. Suddenly standing up after sitting or lying for a long time can also cause fainting. The more serious causes for fainting are due to either a very slow or very fast or very slow heart beat ("arrhythmia"), other types of heart disease, dehydration, blood loss, seizure, stroke or ruptured blood vessel in the brain. Taking too much high blood pressure medicine can also cause low blood pressure and fainting. The exact cause of your episode is not certain. However, the tests today did not show any of the serious causes of fainting. Sometimes further testing is needed to find out if a serious problem exists. Therefore, it is important that you follow-up with your doctor as advised. Home Care: 1) Rest today. You may resume your normal activities when you are feeling back to normal. It is best to remain with someone who can check on you for the next 24 hours to watch for another episode of fainting. 2) If you become light-headed or dizzy, lie down immediately or sit with your head between your knees. 3) Because we do not know the exact cause of your near fainting spell, it is possible for another spell to occur without warning. Therefore, do not drive a car or operate dangerous equipment, do not take a bath alone (use a shower instead) and do not swim alone until your doctor says that you are no longer in danger of having another fainting spell. Follow Up with your doctor as advised. Get Prompt Medical Attention if any of the following occur: -- Another fainting spell occurs, which is not explained by the common causes listed above -- Chest, arm, neck, jaw, back or abdominal pain -- Shortness of breath -- Severe headache or seizure -- Blood in vomit, stools (black or red color) -- Unexpected vaginal bleeding -- Palpitations (very rapid or very slow or irregular heart beat) -- Signs of stroke: Weakness of an arm or leg or one side of the face Difficulty with speech or vision Extreme drowsiness, confusion, dizziness or fainting You have been given the following additional information: Syncope, Unk Cause (Electronically signed by Shane Zayas MD 04/30/2017 21:53)
--- NOTE | 2017-04-30 22:20 | ED MAR SUMMARY ---
..... Medication Administration Record [facility] [address] [place] [address] Patient: MATA ALVARADO Visit ID: [id number] 71y, M Weight: 86.1 kg Height/Length: 68 in BMI: 28.9 ALLERGIES: [place], Neosporin Start 15:43 04/30/2017 Abhishek Franklin R.N., Stop 17:23 04/30/2017 Abhishek Franklin R.N. Medication Administered: IV NS (SALINE), Dose: IV Fluids over 1 hour(s), Rate: 1000 mL/hr, Dispensed: 1000 mL bag, Site: #1 left AC. Medication Ordered: IV NS : initial bolus none -, then 1000 mL/hr for X1 (NOW); Routine. Given 18:56 04/30/2017 Abhishek Franklin R.N. Medication Administered: HYDROCODONE-APAP [PO] (HYDROCODONE-ACETAMINOPHEN), Dose: 2 tab 5/325 mg Tablets PO. Medication Ordered: Hydrocodone-APAP PO 10/650 mg (NOW). Given 19:11 04/30/2017 Abhishek Franklin R.N. Medication Administered: ASPIRIN [PO], Dose: 325 mg PO. Medication Ordered: Aspirin PO 325 mg (NOW).
--- NOTE | 2017-04-30 22:20 | ED MAR SUMMARY ---
..... Medication Administration Record [facility] [address] [place] [address] Patient: MATA ALVARADO Visit ID: [id number] 71y, M Weight: 86.1 kg Height/Length: 68 in BMI: 28.9 ALLERGIES: [place], Neosporin Start 15:43 04/30/2017 Abhishek Franklin R.N., Stop 17:23 04/30/2017 Abhishek Franklin R.N. Medication Administered: IV NS (SALINE), Dose: IV Fluids over 1 hour(s), Rate: 1000 mL/hr, Dispensed: 1000 mL bag, Site: #1 left AC. Medication Ordered: IV NS : initial bolus none -, then 1000 mL/hr for X1 (NOW); Routine. Given 18:56 04/30/2017 Abhishek Franklin R.N. Medication Administered: HYDROCODONE-APAP [PO] (HYDROCODONE-ACETAMINOPHEN), Dose: 2 tab 5/325 mg Tablets PO. Medication Ordered: Hydrocodone-APAP PO 10/650 mg (NOW). Given 19:11 04/30/2017 Abhishek Franklin R.N. Medication Administered: ASPIRIN [PO], Dose: 325 mg PO. Medication Ordered: Aspirin PO 325 mg (NOW).
--- NOTE | 2017-04-30 22:21 | ED MED RECONCILIATION SUMMARY ---
Patient: MATA ALVARADO Medication Reconciliation Report [facility] VisitID: [id number] [address] [place] [address] 71y, M Registration Date/Time: 04/30/2017 Weight: 86.1 kg Height/Length: 68 in. BMI: 28.9 ALLERGIES: [place], Neosporin The patient's Home Medications are listed below: THE FOLLOWING MEDICATIONS NEED TO BE RECONCILED: HYDROcodone Bitartrate ER Oral Lisinopril Oral Metoprolol Tartrate Oral Plavix Oral The source(s) of the original Home Medication information: patient The following Medications were given to the patient in the Emergency Department: IV NS IV Fluids bolus 0, then 1000 mL/hr, administered: 04/30/2017 3:43:00 PM Hydrocodone-APAP [PO] PO 2 tab, administered: 04/30/2017 6:56:00 PM Aspirin [PO] PO 325 mg, administered: 04/30/2017 7:11:00 PM The following Medications were prescribed to the patient: None.
--- NOTE | 2017-04-30 22:21 | ED MED RECONCILIATION SUMMARY ---
Patient: MATA ALVARADO Medication Reconciliation Report [facility] VisitID: [id number] [address] [place] [address] 71y, M Registration Date/Time: 04/30/2017 Weight: 86.1 kg Height/Length: 68 in. BMI: 28.9 ALLERGIES: [place], Neosporin The patient's Home Medications are listed below: THE FOLLOWING MEDICATIONS NEED TO BE RECONCILED: HYDROcodone Bitartrate ER Oral Lisinopril Oral Metoprolol Tartrate Oral Plavix Oral The source(s) of the original Home Medication information: patient The following Medications were given to the patient in the Emergency Department: IV NS IV Fluids bolus 0, then 1000 mL/hr, administered: 04/30/2017 3:43:00 PM Hydrocodone-APAP [PO] PO 2 tab, administered: 04/30/2017 6:56:00 PM Aspirin [PO] PO 325 mg, administered: 04/30/2017 7:11:00 PM The following Medications were prescribed to the patient: None.
[2017-04-30 22:25] VITALS: BP 128/87
[2017-04-30] MEDS ORDERED: NORCO1 TAB PO (23:08)
[2017-04-30] MEDS ORDERED: LISINOPRIL10 MG PO (23:08)
[2017-04-30] MEDS ORDERED: CLOPIDOGREL75 MG PO (23:10)
[2017-04-30] MEDS ORDERED: ZOFRAN ODT4 MG PO (23:10)
[2017-04-30] MEDS ORDERED: METOPROLOL SUCC25 MG PO (23:13)
[2017-04-30] MEDS ORDERED: NEURONTIN300 MG PO (23:14)
--- NOTE | 2017-04-30 23:30 | NUR ---
Taken over this patient's care. He has a "service dog" to stay with him in hte room. He remains on TELE but has not complained of any chestpain nor palpitation.
--- NOTE | 2017-05-01 00:26 | NUR ---
PT ARRIVED AROUND 2100 VIA WC FROM THE ED W/ HIS SERVICE DOG. C/O BACK PAIN AT 03/12, PAIN MEDS GIVEN BY DIRECT CARE WORKER RN. NO NAUSEA OR SOB. TELE IS NSR W/ BBB IN THE 70'S. NO SKIN ISSUES. AMBULATES IND. RESTING W/ CALL LIGHT IN REACH.
[2017-05-01 02:58] VITALS: BP 127/68
--- NOTE | 2017-05-01 04:50 | Progress Note ---
Subjective General ADVANCED CARE PLAN History of Present Illness The patient is a 71-year-old white male with a significant past make a history of COPD, hypertension, coronary artery disease status post coronary stent placement, hepatitis C, cirrhosis, chronic back pain, migraine headaches, who presented to [facility] emergency department on the day of admission secondary to complaints of syncope. [facility] ER evaluation was consistent with syncope with head trauma without significant injury. Secondary to the above, the patient was admitted by Alex Bynum M.D. for further evaluation and treatment. For other history present illness, past medical history, family history, social history, review of systems, and admission physical examination please see the patient's history and physical examination and ER visit note in the patient's medical record. A discussion was undertaken with the patient regarding previous advance care arrangements/decisions. The following advanced directives were noted by the patient and discussed with me at the time of admission. ADVANCED DIRECTIVES: 1. Living well: Yes 2. POLST: No 3. CODE STATUS: FULL CODE 4. Durable Power Hurricane Tracker Health care: No 5. Donor card: No The patient has expressed interest in pursuing full resuscitative efforts including intubation/mechanical ventilation, CPR, and electrical cardioversion at the time of cardiopulmonary arrest. The patient's wishes were documented in the chart and orders regarding the patient's wishes entered into the [place] CPOE system. The "Advance Care Plan Document" was distributed to patient to discuss with his family. 15-30 minutes was spent in performing the above tasks and documentation of the patient's advanced care plan.
--- NOTE | 2017-05-01 04:50 | Progress Note ---
Subjective General ADVANCED CARE PLAN History of Present Illness The patient is a 71-year-old white male with a significant past make a history of COPD, hypertension, coronary artery disease status post coronary stent placement, hepatitis C, cirrhosis, chronic back pain, migraine headaches, who presented to [facility] emergency department on the day of admission secondary to complaints of syncope. [facility] ER evaluation was consistent with syncope with head trauma without significant injury. Secondary to the above, the patient was admitted by Alex Bynum M.D. for further evaluation and treatment. For other history present illness, past medical history, family history, social history, review of systems, and admission physical examination please see the patient's history and physical examination and ER visit note in the patient's medical record. A discussion was undertaken with the patient regarding previous advance care arrangements/decisions. The following advanced directives were noted by the patient and discussed with me at the time of admission. ADVANCED DIRECTIVES: 1. Living well: Yes 2. POLST: No 3. CODE STATUS: FULL CODE 4. Durable Power Forensic Analyst Health care: No 5. Donor card: No The patient has expressed interest in pursuing full resuscitative efforts including intubation/mechanical ventilation, CPR, and electrical cardioversion at the time of cardiopulmonary arrest. The patient's wishes were documented in the chart and orders regarding the patient's wishes entered into the [employer] CPOE system. The "Advance Care Plan Document" was distributed to patient to discuss with his family. 15-30 minutes was spent in performing the above tasks and documentation of the patient's advanced care plan.
[2017-05-01 06:40] VITALS: BP 142/70
--- NOTE | 2017-05-01 09:00 | NUR ---
RECEIVED PT SITTING AT THE EDGE OF BED, AWAKE, ALERT, ORIENTED, COHERENT, ANXIOUS TO TAKE A SHOWER, TO GO HOME. V/S TAKEN AND RECORDED. ASSESSMENT DONE. PT DENIES CHEST PAIN, DIZZINESS, LIGHTHEADEDNESS AT THIS TIME. INFORMED PT THAT I WILL TALK TO DR KING FIRST BEFORE HE TAKES A SHOWER BEC HE WAS ADMITTED WITH SYNCOPE, AND I DON'T WANT FOR HIM TO FALL. DR QUINONES NOTIFIED, WITH ORDERS MADE AND CARRIED OUT. PLAN OF CARE INFORMED PT.
--- NOTE | 2017-05-01 09:38 | Provider's Discharge Care Plan ---
Problem, Goal, Plan Problem List 1. Syncope and collapse 2. Coronary artery disease 3. Chronic back pain 4. Hypertension
--- NOTE | 2017-05-01 09:38 | Provider's Discharge Care Plan ---
Problem, Goal, Plan Problem List 1. Syncope and collapse 2. Coronary artery disease 3. Chronic back pain 4. Hypertension
--- NOTE | 2017-05-01 09:55 | NUR ---
PT IS ANXIOUS TO GO HOME. TRIED TO TAKE IT HIS IV, BUT PT ACCIDENTALLY OUT TH IV SITE. PT'S DOG IS IN BED WITH PT, DOTTIE. COMPLAINT OF BACK, NECK PAIN. PAIN MEDICATION GIVEN. " DR PRADO OF EMERGENCY ROOM TOLDA ME YESTERDAY THAT HE IS GOING TO GIVE ME 12 TABLETS OF VICODIN BUT THIS DOCTOR WILL NOT GIVE ME ANYTHING. I WANT TO TALK TO HIM" PT STATES. DR QUINONES PAGED AND CAME DOWN IMMEDIATELY AND SPOKE WITH THE PT. AT 1000, PT JUST LEFT, TRIED TO EXPLAIN ABOUT HIS DISCHAGRGE PAPERS, " NO, AND I WON'T SIGN THAT" PT TOOK HIS PAPER WORKS THEN ASSISTED PT TO THE LOBBY, PT PREFERS TO AMBULATE, PT WALKED WITH HIS DOG ON A LEASH. " I WANT TO TALK TO THE ORCHESTRA TEACHER" ASSISTED PT TO THE TAXI TRUCK DRIVER. " THANK YOU FOR ALL YOUR HELP" PT STATES.
== END 2017-05-01 10:00 | disposition home or self-care (01) ==
LOC: ED SRH 15:15 → TRANS SRH 18:34 → ACUTE2 SRH 20:48
PROVIDERS: ADMIT Emergency Medicine
DX: R55 Syncope and collapse (principal); R42 Dizziness and giddiness; S09.90XA Unspecified injury of head, initial encounter; W18.30XA Fall on same level, unspecified, initial encounter; Y92.003 Bedroom of unspecified non-institutional (private) residence as the place of occurrence of the external cause; Y99.8 Other external cause status; K74.69 Other cirrhosis of liver; Z86.19 Personal history of other infectious and parasitic diseases; J44.9 Chronic obstructive pulmonary disease, unspecified; I25.10 Atherosclerotic heart disease of native coronary artery without angina pectoris; Z95.5 Presence of coronary angioplasty implant and graft; I25.2 Old myocardial infarction; Z59.6 Low income
CPT/HCPCS: 29230; 85241; 90100; 90616; 92610; 92720; 95059

== ENCOUNTER → 2017-05-16 | Emergency (ER) | payer OTHER ==
[~2017-05-16] MED LIST: CLOPIDOGREL75 MG PO; LISINOPRIL10 MG PO; METOPROLOL SUCC25 MG PO; NEURONTIN300 MG PO; NORCO1 TAB PO; ZOFRAN ODT4 MG PO
--- NOTE | 2017-05-16 04:05 | ED CLINICAL REPORT ---
Clinical Report - Physicians/Mid Levels [facility] [address] [place] [address] 05/16/2017 3:42 Patient: MATA ALVARADO Time Seen: 03:59; initial patient contact. Arrived- By private vehicle. Historian- patient. HISTORY OF PRESENT ILLNESS Chief Complaint: SKIN RASH. This started yesterday and is still present. It is described as itchy and burning. It has been generalized in location (pubic area). A cause has been identified (from dry shave). No recent medication or insect bite. Was not recently exposed to poison thomas. Similar symptoms previously: None. Recent medical care: Not recently seen/assessed. REVIEW OF SYSTEMS No fever, chills or genital lesions. All systems otherwise negative, except as recorded above. PAST HISTORY Syncope. Headache. Head Injury. Congenital Heart Disease. Cirrhosis. Hepatitis. COPD - Chronic Obstructive Pulmonary Disease. Hypertension. Cardiac Stent. Heart attack. Back Injury. Neck Pain. Migraine Headache. Back Pain. ADDITIONAL SURGERIES: Back Surgery. Cardiac Stent. Cholecystectomy. Wrist repair. Medications: HYDROcodone Bitartrate ER Oral. Lisinopril Oral. Metoprolol Tartrate Oral. Plavix Oral. Allergies: [place]. Neosporin. SOCIAL HISTORY Current every day smoker. ADDITIONAL NOTES The nursing notes have been reviewed. PHYSICAL EXAM Vital Signs: 05/16/2017 03:52 BP: 125/72. HR: 75. RR: 18. O2 saturation: 99%. Temp: 98.4 F. Pain level now: 4/10. Have been reviewed as normal. Appearance: Alert. Oriented X3. No acute distress. Skin: (Razor burn to pubic area, no cellulitis). Neuro: Oriented X 3. PROGRESS AND PROCEDURES Disposition: Discharged home in good condition. Condition: good. CLINICAL IMPRESSION Skin rash (Razor burn). INSTRUCTIONS Prescription Medications: Hydrocortisone 2.5% cream: apply to affected areas three times daily as needed for rash. Dispense thirty (30) grams. One refill. Substitution is permissible. Follow-up: Follow up with your doctor if not better. Call for an appointment. Blood pressure screening was not performed during this visit because the patient has an active diagnosis of hypertension. (Electronically signed by Kenneth Arevalo Dr. 05/16/2017 4:08)
--- NOTE | 2017-05-16 04:05 | ED NURSING NOTES ---
Clinical Report - Nurses [facility] [address] [place] [address] 05/16/2017 3:42 Patient: MATA ALVARADO TRIAGE Triage time 03:50. Acuity: LEVEL 5. Chief Complaint: SKIN RASH. --03:57 Kiersten Roe R.N. 03:52 05/16/17. BP: 125/72 taken on the left arm, while lying. HR: 75 (regular and normal rate). RR: 18 (regular and unlabored). O2 saturation: 99% on room air. Temp: 98.4 F (oral). Pain level now: 02/10. --03:57 Kiersten Roe R.N. Weight: 86.1 kg stated. Height/Length: 67 inches Per Patient. BMI: 29.8. --03:53 Kiersten Roe R.N. Medications HYDROcodone Bitartrate ER Oral. Lisinopril Oral. Metoprolol Tartrate Oral. Plavix Oral. --03:56 Kiersten Roe R.N. Allergies [place]. Neosporin. --03:56 Kiersten Roe R.N. History Arrived by private vehicle. Historian: patient. Unaccompanied. Primary physician (ROCÍO). Reported as located on the chest and genitalia. Onset was abrupt. It is described as itchy. ( PT REPORTS DRY SHAVING YESTERDAY NOW PRESENTS WITH RASH TO CHEST AND GROIN). 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 PAST MEDICAL HX: Immunizations: up-to-date. SOCIAL HX: Heavy tobacco smoker (cigarette)- 1 pack per day. No infectious disease exposure. ABUSE ASSESSMENT: No report of abuse. SELF HARM ASSESSMENT: A self harm assessment was performed. The patient answered "no" to the question "Have you recently felt down, depressed, or hopeless?", "Have you noticed less interest or pleasure in doing things?", "Do you have thoughts of harming or killing yourself?", "Are you here because you tried to hurt yourself?", "Have you ever tried to hurt yourself before today?", "Have you recently had thoughts about harming or killing others?" and "Do you have any dangerous items in your possession?". FALL RISK ASSESSMENT: Fall risk assessment completed. No fall risk identified. NUTRITIONAL RISK ASSESSMENT: The nutritional risk assessment revealed no deficiencies. FUNCTIONAL ASSESSMENT: Functional assessment: no impairments noted. LEARNING NEEDS ASSESSMENT: The learning needs assessment revealed no barriers. SKIN INTEGRITY ASSESSMENT: Skin integrity risk assessment completed. No skin integrity risk identified. --03:57 Kiersten Roe R.N. PROBLEMS: Syncope. Headache. Head Injury. Congenital Heart Disease. Cirrhosis. Hepatitis. COPD - Chronic Obstructive Pulmonary Disease. Hypertension. Cardiac Stent. Heart attack. Back Injury. Neck Pain. Migraine Headache. Back Pain. --03:56 Kiersten Roe R.N. ADDITIONAL SURGERIES: Back Surgery. Cardiac Stent. Cholecystectomy. Wrist repair. --03:56 Kiersten Roe R.N. Interventions ID band on patient. To treatment room. --03:57 Kiersten Roe R.N. PHYSICAL ASSESSMENT Ambulatory to room. GENERAL / NEURO / PSYCH: Alert. The patient does not appear to be in acute distress. Oriented X 4. HEENT: Pupils equal, round and reactive to light. Mucous membranes are pink. RESPIRATORY: Respirations not labored. Breath sounds within normal limits. CVS: Capillary refill less than 2 seconds. Pulses within normal limits. GI / : Abdomen nontender. SKIN: Skin is warm, dry and non-tender. Skin rash on the chest and genitalia. Normal skin turgor. --03:58 Kiersten Roe R.N. NURSING PROGRESS NOTES Patient ready for evaluation- chart flagged. --03:58 Kiersten Roe R.N. DISPOSITION / DISCHARGE Departure time: 412. Condition at departure: unchanged and stable. No learning barriers present. Discharge instructions provided and reviewed with the patient. Reviewed medication(s) side effects, precautions, dosing and course information. Prescription(s) given to the patient. The patient has no activity restrictions. Patient verbalized understanding. Written instructions provided in [place]. No treatment instructions or referrals given to the patient. The patient was discharged home and unaccompanied at time of discharge. He left the Emergency Department ambulatory and via private vehicle. Patient driving. FALL RISK ASSESSMENT: Fall risk assessment completed. No fall risk identified. --04:21 Kiersten Roe R.N. 04:16 05/16/17. BP: deferred. HR: deferred. RR: deferred. O2 saturation: deferred. Temp: deferred. Pain level now deferred. --04:21 Kiersten Roe R.N. Locked/Released at 05/16/2017 4:21 by Kiersten Roe R.N.
--- NOTE | 2017-05-16 04:05 | ED CLINICAL REPORT ---
Clinical Report - Physicians/Mid Levels [facility] [address] [place] [address] 05/16/2017 3:42 Patient: MATA ALVARADO Time Seen: 03:59; initial patient contact. Arrived- By private vehicle. Historian- patient. HISTORY OF PRESENT ILLNESS Chief Complaint: SKIN RASH. This started yesterday and is still present. It is described as itchy and burning. It has been generalized in location (pubic area). A cause has been identified (from dry shave). No recent medication or insect bite. Was not recently exposed to poison thomas. Similar symptoms previously: None. Recent medical care: Not recently seen/assessed. REVIEW OF SYSTEMS No fever, chills or genital lesions. All systems otherwise negative, except as recorded above. PAST HISTORY Syncope. Headache. Head Injury. Congenital Heart Disease. Cirrhosis. Hepatitis. COPD - Chronic Obstructive Pulmonary Disease. Hypertension. Cardiac Stent. Heart attack. Back Injury. Neck Pain. Migraine Headache. Back Pain. ADDITIONAL SURGERIES: Back Surgery. Cardiac Stent. Cholecystectomy. Wrist repair. Medications: HYDROcodone Bitartrate ER Oral. Lisinopril Oral. Metoprolol Tartrate Oral. Plavix Oral. Allergies: [place]. Neosporin. SOCIAL HISTORY Current every day smoker. ADDITIONAL NOTES The nursing notes have been reviewed. PHYSICAL EXAM Vital Signs: 05/16/2017 03:52 BP: 125/72. HR: 75. RR: 18. O2 saturation: 99%. Temp: 98.4 F. Pain level now: 4/10. Have been reviewed as normal. Appearance: Alert. Oriented X3. No acute distress. Skin: (Razor burn to pubic area, no cellulitis). Neuro: Oriented X 3. PROGRESS AND PROCEDURES Disposition: Discharged home in good condition. Condition: good. CLINICAL IMPRESSION Skin rash (Razor burn). INSTRUCTIONS Prescription Medications: Hydrocortisone 2.5% cream: apply to affected areas three times daily as needed for rash. Dispense thirty (30) grams. One refill. Substitution is permissible. Follow-up: Follow up with your doctor if not better. Call for an appointment. Blood pressure screening was not performed during this visit because the patient has an active diagnosis of hypertension. (Electronically signed by Kenneth Arevalo Dr. 05/16/2017 4:08)
--- NOTE | 2017-05-16 04:05 | ED NURSING NOTES ---
Clinical Report - Nurses [facility] [address] [place] [address] 05/16/2017 3:42 Patient: MATA ALVARADO TRIAGE Triage time 03:50. Acuity: LEVEL 5. Chief Complaint: SKIN RASH. --03:57 Kiersten Roe R.N. 03:52 05/16/17. BP: 125/72 taken on the left arm, while lying. HR: 75 (regular and normal rate). RR: 18 (regular and unlabored). O2 saturation: 99% on room air. Temp: 98.4 F (oral). Pain level now: 02/10. --03:57 Kiersten Roe R.N. Weight: 86.1 kg stated. Height/Length: 67 inches Per Patient. BMI: 29.8. --03:53 Kiersten Roe R.N. Medications HYDROcodone Bitartrate ER Oral. Lisinopril Oral. Metoprolol Tartrate Oral. Plavix Oral. --03:56 Kiersten Roe R.N. Allergies [place]. Neosporin. --03:56 Kiersten Roe R.N. History Arrived by private vehicle. Historian: patient. Unaccompanied. Primary physician (ROCÍO). Reported as located on the chest and genitalia. Onset was abrupt. It is described as itchy. ( PT REPORTS DRY SHAVING YESTERDAY NOW PRESENTS WITH RASH TO CHEST AND GROIN). 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 PAST MEDICAL HX: Immunizations: up-to-date. SOCIAL HX: Heavy tobacco smoker (cigarette)- 1 pack per day. No infectious disease exposure. ABUSE ASSESSMENT: No report of abuse. SELF HARM ASSESSMENT: A self harm assessment was performed. The patient answered "no" to the question "Have you recently felt down, depressed, or hopeless?", "Have you noticed less interest or pleasure in doing things?", "Do you have thoughts of harming or killing yourself?", "Are you here because you tried to hurt yourself?", "Have you ever tried to hurt yourself before today?", "Have you recently had thoughts about harming or killing others?" and "Do you have any dangerous items in your possession?". FALL RISK ASSESSMENT: Fall risk assessment completed. No fall risk identified. NUTRITIONAL RISK ASSESSMENT: The nutritional risk assessment revealed no deficiencies. FUNCTIONAL ASSESSMENT: Functional assessment: no impairments noted. LEARNING NEEDS ASSESSMENT: The learning needs assessment revealed no barriers. SKIN INTEGRITY ASSESSMENT: Skin integrity risk assessment completed. No skin integrity risk identified. --03:57 Kiersten Roe R.N. PROBLEMS: Syncope. Headache. Head Injury. Congenital Heart Disease. Cirrhosis. Hepatitis. COPD - Chronic Obstructive Pulmonary Disease. Hypertension. Cardiac Stent. Heart attack. Back Injury. Neck Pain. Migraine Headache. Back Pain. --03:56 Kiersten Roe R.N. ADDITIONAL SURGERIES: Back Surgery. Cardiac Stent. Cholecystectomy. Wrist repair. --03:56 Kiersten Roe R.N. Interventions ID band on patient. To treatment room. --03:57 Kiersten Roe R.N. PHYSICAL ASSESSMENT Ambulatory to room. GENERAL / NEURO / PSYCH: Alert. The patient does not appear to be in acute distress. Oriented X 4. HEENT: Pupils equal, round and reactive to light. Mucous membranes are pink. RESPIRATORY: Respirations not labored. Breath sounds within normal limits. CVS: Capillary refill less than 2 seconds. Pulses within normal limits. GI / : Abdomen nontender. SKIN: Skin is warm, dry and non-tender. Skin rash on the chest and genitalia. Normal skin turgor. --03:58 Kiersten Roe R.N. NURSING PROGRESS NOTES Patient ready for evaluation- chart flagged. --03:58 Kiersten Roe R.N. DISPOSITION / DISCHARGE Departure time: 412. Condition at departure: unchanged and stable. No learning barriers present. Discharge instructions provided and reviewed with the patient. Reviewed medication(s) side effects, precautions, dosing and course information. Prescription(s) given to the patient. The patient has no activity restrictions. Patient verbalized understanding. Written instructions provided in Khmer. No treatment instructions or referrals given to the patient. The patient was discharged home and unaccompanied at time of discharge. He left the Emergency Department ambulatory and via private vehicle. Patient driving. FALL RISK ASSESSMENT: Fall risk assessment completed. No fall risk identified. --04:21 Kiersten Roe R.N. 04:16 05/16/17. BP: deferred. HR: deferred. RR: deferred. O2 saturation: deferred. Temp: deferred. Pain level now deferred. --04:21 Kiersten Roe R.N. Locked/Released at 05/16/2017 4:21 by Kiersten Roe R.N.
--- NOTE | 2017-05-16 04:21 | ED MAR SUMMARY ---
..... Medication Administration Record [facility] [address] [place], [place] [id number] Patient: MATA ALVARADO Visit ID: [id number] 71y, M Weight: 86.1 kg Height/Length: 67 in BMI: 29.8 ALLERGIES: [place], Neosporin
--- NOTE | 2017-05-16 04:21 | ED MED RECONCILIATION SUMMARY ---
Patient: MATA ALVARADO Medication Reconciliation Report [facility] VisitID: [id number] [address] [place] [address] 71y, M Registration Date/Time: 05/16/2017 Weight: 86.1 kg Height/Length: 67 in. BMI: 29.8 ALLERGIES: [place], Neosporin The patient's Home Medications are listed below: THE FOLLOWING MEDICATIONS NEED TO BE RECONCILED: HYDROcodone Bitartrate ER Oral Lisinopril Oral Metoprolol Tartrate Oral Plavix Oral The source(s) of the original Home Medication information: Not obtained. The following Medications were given to the patient in the Emergency Department: None. The following Medications were prescribed to the patient: Hydrocortisone 2.5% cream: apply to affected areas three times daily as needed for rash. Dispense thirty (30) grams. One refill. Substitution is permissible. -- Kenneth Arevalo Dr.
--- NOTE | 2017-05-16 04:21 | ED DISCHARGE INSTRUCTIONS ---
Patient: MATA ALVARADO General Instructions [facility] VisitID: [id number] [place] [address] 71y, M Registration Date/Time: 05/16/2017 Skin rash (Razor burn). INSTRUCTIONS Prescription Medications: Hydrocortisone 2.5% cream: apply to affected areas three times daily as needed for rash. Dispense thirty (30) grams. One refill. Substitution is permissible. Follow-up: Follow up with your doctor if not better. Call for an appointment. Blood pressure screening was not performed during this visit because the patient has an active diagnosis of hypertension. ADDITIONAL INFORMATION Dermatitis (Non-Specific) Dermatitis is an inflammation of the skin. The exact cause of your rash is not certain. However, this rash does not appear to be an infection or contagious illness. Taking care of the rash at home should help relieve your symptoms. Home Care: Keep the areas of rash clean by washing it daily. This also helps to keep the skin moist. Use a neutral pH soap such as Dove or Lever 2000. Apply a moisturizing lotion after bathing to prevent dry skin. Avoid skin irritants (wool or silk clothing, grease, oils, some medicines, harsh soaps, and detergents). Wear absorbent, soft fabrics next to the skin rather than rough or scratchy materials. Unless another medicine was prescribed, you may use Hydrocortisone cream (which you can get without a prescription) to reduce the inflammation. Follow Up: Make an appointment with your doctor in the next 1 to 2 weeks if your symptoms do not improve with the above measures. Get Prompt Medical Attention if any of the following occur: Increasing area of redness or pain in the skin Yellow crusts or drainage from the rash Joint pain New rash that appears in other areas of the body Fever of 100.4F (38C) or higher, or as directed by your healthcare provider You have been given the following additional information: Dermatitis, Non-Specific (Electronically signed by Kenneth Arevalo Dr. 05/16/2017 4:08)
--- NOTE | 2017-05-16 04:21 | ED MED RECONCILIATION SUMMARY ---
Patient: MATA ALVARADO Medication Reconciliation Report [facility] VisitID: [id number] [address] [place] [address] 71y, M Registration Date/Time: 05/16/2017 Weight: 86.1 kg Height/Length: 67 in. BMI: 29.8 ALLERGIES: [place], Neosporin The patient's Home Medications are listed below: THE FOLLOWING MEDICATIONS NEED TO BE RECONCILED: HYDROcodone Bitartrate ER Oral Lisinopril Oral Metoprolol Tartrate Oral Plavix Oral The source(s) of the original Home Medication information: Not obtained. The following Medications were given to the patient in the Emergency Department: None. The following Medications were prescribed to the patient: Hydrocortisone 2.5% cream: apply to affected areas three times daily as needed for rash. Dispense thirty (30) grams. One refill. Substitution is permissible. -- Kenneth Arevalo Dr.
--- NOTE | 2017-05-16 04:21 | ED DISCHARGE INSTRUCTIONS ---
Patient: MATA ALVARADO General Instructions [facility] VisitID: [id number] [place] [address] 71y, M Registration Date/Time: 05/16/2017 Skin rash (Razor burn). INSTRUCTIONS Prescription Medications: Hydrocortisone 2.5% cream: apply to affected areas three times daily as needed for rash. Dispense thirty (30) grams. One refill. Substitution is permissible. Follow-up: Follow up with your doctor if not better. Call for an appointment. Blood pressure screening was not performed during this visit because the patient has an active diagnosis of hypertension. ADDITIONAL INFORMATION Dermatitis (Non-Specific) Dermatitis is an inflammation of the skin. The exact cause of your rash is not certain. However, this rash does not appear to be an infection or contagious illness. Taking care of the rash at home should help relieve your symptoms. Home Care: Keep the areas of rash clean by washing it daily. This also helps to keep the skin moist. Use a neutral pH soap such as Dove or Lever 2000. Apply a moisturizing lotion after bathing to prevent dry skin. Avoid skin irritants (wool or silk clothing, grease, oils, some medicines, harsh soaps, and detergents). Wear absorbent, soft fabrics next to the skin rather than rough or scratchy materials. Unless another medicine was prescribed, you may use Hydrocortisone cream (which you can get without a prescription) to reduce the inflammation. Follow Up: Make an appointment with your doctor in the next 1 to 2 weeks if your symptoms do not improve with the above measures. Get Prompt Medical Attention if any of the following occur: Increasing area of redness or pain in the skin Yellow crusts or drainage from the rash Joint pain New rash that appears in other areas of the body Fever of 100.4F (38C) or higher, or as directed by your healthcare provider You have been given the following additional information: Dermatitis, Non-Specific (Electronically signed by Kenneth Arevalo Dr. 05/16/2017 4:08)
--- NOTE | 2017-05-16 04:21 | ED MAR SUMMARY ---
..... Medication Administration Record [facility] [address] [place], [place] [id number] Patient: MATA ALVARADO Visit ID: [id number] 71y, M Weight: 86.1 kg Height/Length: 67 in BMI: 29.8 ALLERGIES: [place], Neosporin
== END ==
LOC: ED SRH 03:42
DX: R21 Rash and other nonspecific skin eruption (principal); J44.9 Chronic obstructive pulmonary disease, unspecified; I10 Essential (primary) hypertension; Z79.02 Long term (current) use of antithrombotics/antiplatelets; Z79.899 Other long term (current) drug therapy; F17.210 Nicotine dependence, cigarettes, uncomplicated; Z88.1 Allergy status to other antibiotic agents; Z88.8 Allergy status to other drugs, medicaments and biological substances